=== PATIENT | female | born 1950 | race Asian ===

== ENCOUNTER 2025-07-02 06:23 | Day surgery (SDC) | payer BC ==
[2025-07-01 15:20] VITALS: BMI 18.8
[2025-07-02] MEDS ORDERED: fentaNYL PF 100 MCG/2 ML SYRINGE ONE (06:52)
[2025-07-02] MEDS ORDERED: PROPOFOL 20 ML ONE (06:52)
[2025-07-02] MEDS ORDERED: Rocuronium Bromide 10 MG/ML (10ML VIAL) ONE (06:52)
[2025-07-02] MEDS ORDERED: Lidocaine 1% PF 5 ML VIAL ONE (06:52)
[2025-07-02] MEDS ORDERED: CEFAZOLIN 2 GM VIAL ONE (07:13)
[2025-07-02] MEDS ORDERED: PHENYLEPHRINE-NS 100 MCG/ML 10 ML SYRINGE ONE (07:57)
== END 2025-07-02 09:00 | disposition home or self-care (01) ==
LOC: SDC 06:23
PROVIDERS: ATTEND Student in an Organized Health Care Education/Training Program
PROC: 0WPB00Z Removal of Drainage Device from Left Pleural Cavity, Open Approach (ICD-10-PCS; principal; 2025-07-02)
DX: J91.0 Malignant pleural effusion (principal)
CPT/HCPCS: J0169; J0665; J2704

== ENCOUNTER 2025-07-18 13:21 | Outpatient (CLI) | payer BC | END 2025-07-18 13:22 | disposition home or self-care (01) | LOC: RAD 13:21 | PROVIDERS: ATTEND Student in an Organized Health Care Education/Training Program | DX: J91.0 Malignant pleural effusion (principal) | CPT/HCPCS: 71046 ==

== ENCOUNTER 2025-08-07 03:44 | Inpatient (IN) | payer BC, MEDICARE ==
[2025-08-07] MEDS ORDERED: Ondansetron PF 4 MG/2 ML Vial IVP PRN (08:16)
[2025-08-07] MEDS ORDERED: Electrolyte Replacement Protocol 1 EACH FS SCH (08:30)
[2025-08-07 08:53] VITALS: BMI 19.3
[2025-08-07] MEDS ORDERED: Norepinephrine 8 MG/0.9% NS 250 ML IVPB SCH (09:00)
[2025-08-07] MEDS: Famotidine/PF 20 mg/2ml Vial SLOW IVP SCH (09:23)
[2025-08-07] MEDS ORDERED: PHOS-NAK 1 PKT PACK PO PRN (09:30)
[2025-08-07] MEDS ORDERED: Potassium Chloride 20 MEQ in Premix 1 BAG IVPB PRN (09:30)
[2025-08-07] MEDS: Enoxaparin 40 MG (0.4 mL) SYRINGE SC SCH (10:26)
[2025-08-07] MEDS: Famotidine 20 MG TAB PO SCH (10:27)
[2025-08-07] MEDS: Gabapentin 300 MG CAP PO SCH (10:28)
[2025-08-07] MEDS: Magnesium 2 GM/50 ML(in water) 2 GM in Premix 1 BAG IVPB PRN (10:35)
[2025-08-07 12:08] VITALS: BMI 19.3
[2025-08-07] MEDS: Albumin 25% 25 GM (100 mL) BOT IVPB SCH (15:59)
[2025-08-07] MEDS: Mupirocin 1 GM TUBE NASAL DECOLONIZATION NASAL SCH (20:13)
[2025-08-08] MEDS: Albumin 25% 25 GM (100 mL) BOT IVPB SCH (06:39)
[2025-08-08 07:11] LABS: #Basophils Less than 0.03 10x3/uL (0.0-0.2); #Eosinophils Less than 0.03 10x3/uL (0.0-0.7); #Monocytes 0.46 10x3/uL (0.11-0.59); #Neutrophils 4.75 10x3/uL (1.40-6.50); %Basophils 0.0 % (0.0-1.0); %Eosinophils 0.0 % (0.0-10.0); %Lymphocytes 5.9 % (21.0-51.0); %Monocytes 8.2 % (0.0-10.0); %Neutrophils 85.2 % (42.0-75.0); Hematocrit 24.0 % (36.0-47.0); Hemoglobin 7.4 g/dL (12.0-16.0); Mean Corpuscular Hemoglobin 30.6 pg (27.0-31.0); Mean Corpuscular Volume 99.2 fL (78.0-98.0); Platelet Count 343 10x3/uL (130-400); Red Blood Cell (RBC) Count 2.42 mill/uL (4.20-5.40); White Blood Cell (WBC) Count 5.58 10x3/uL (4.8-10.8)
[2025-08-08 07:39] LABS: Vancomycin, Random 14.8 ug/mL (See Comment)
[2025-08-08 07:44] LABS: ALT (SGPT) 17 U/L (Less than 34); AST (SGOT) 25 U/L (11-34); Albumin 2.5 g/dL (3.1-4.5); Alkaline Phosphatase 61 U/L (40-110); Anion Gap 13 mmol/L (10-20); BUN (Urea Nitrogen) 20 mg/dL (9.8-20.1); Bilirubin, Total 0.3 mg/dL (0.3-1.2); Calc. Creatinine Clearance 90 mL/min (70-130); Calcium 9.0 mg/dL (7.8-10.44); Carbon Dioxide 27 mmol/L (23-31); Chloride 102 mmol/L (98-107); Globulin 3.1 g/dL (2.4-3.5); Glucose 122 mg/dL (83-110); Magnesium 1.7 mg/dL (1.6-2.6); Potassium 3.8 mmol/L (3.5-5.1); Sodium 138 mmol/L (136-145)
[2025-08-08] MEDS: Vancomycin 1 GM Premix Bag IVPB SCH (13:19)
[2025-08-08] MEDS: Vancomycin 1 GM in Premix 1 BAG IVPB SCH (23:11)
[2025-08-09] MEDS: oxyCODONE 5 MG TAB PO PRN (04:05)
[2025-08-09 06:11] LABS: #Basophils Less than 0.03 10x3/uL (0.0-0.2); #Eosinophils Less than 0.03 10x3/uL (0.0-0.7); #Monocytes 0.80 10x3/uL (0.11-0.59); #Neutrophils 4.38 10x3/uL (1.40-6.50); %Basophils 0.0 % (0.0-1.0); %Eosinophils 0.4 % (0.0-10.0); %Lymphocytes 7.9 % (21.0-51.0); %Monocytes 14.1 % (0.0-10.0); %Neutrophils 76.9 % (42.0-75.0); Hematocrit 21.5 % (36.0-47.0); Hemoglobin 6.6 g/dL (12.0-16.0); Mean Corpuscular Hemoglobin 30.7 pg (27.0-31.0); Mean Corpuscular Volume 100.0 fL (78.0-98.0); Platelet Count 329 10x3/uL (130-400); Red Blood Cell (RBC) Count 2.15 mill/uL (4.20-5.40); White Blood Cell (WBC) Count 5.69 10x3/uL (4.8-10.8)
[2025-08-09 06:21] LABS: Anion Gap 10 mmol/L (10-20); BUN (Urea Nitrogen) 21 mg/dL (9.8-20.1); Calc. Creatinine Clearance 96 mL/min (70-130); Calcium 8.7 mg/dL (7.8-10.44); Carbon Dioxide 28 mmol/L (23-31); Chloride 106 mmol/L (98-107); Glucose 110 mg/dL (83-110); Magnesium 1.8 mg/dL (1.6-2.6); Potassium 3.4 mmol/L (3.5-5.1); Sodium 141 mmol/L (136-145)
[2025-08-09 17:03] LABS: Potassium 4.2 mmol/L (3.5-5.1)
[2025-08-09] MEDS: Acetaminophen 325 MG TAB PO PRN (20:20)
[2025-08-10 06:40] LABS: #Basophils Less than 0.03 10x3/uL (0.0-0.2); #Eosinophils 0.05 10x3/uL (0.0-0.7); #Monocytes 1.05 10x3/uL (0.11-0.59); #Neutrophils 4.48 10x3/uL (1.40-6.50); %Basophils 0.2 % (0.0-1.0); %Eosinophils 0.8 % (0.0-10.0); %Lymphocytes 10.7 % (21.0-51.0); %Monocytes 16.5 % (0.0-10.0); %Neutrophils 70.2 % (42.0-75.0); Hematocrit 26.4 % (36.0-47.0); Hemoglobin 8.2 g/dL (12.0-16.0); Mean Corpuscular Hemoglobin 30.4 pg (27.0-31.0); Mean Corpuscular Volume 97.8 fL (78.0-98.0); Platelet Count 308 10x3/uL (130-400); Red Blood Cell (RBC) Count 2.70 mill/uL (4.20-5.40); White Blood Cell (WBC) Count 6.37 10x3/uL (4.8-10.8)
[2025-08-10 06:57] LABS: Anion Gap 12 mmol/L (10-20); BUN (Urea Nitrogen) 16 mg/dL (9.8-20.1); Calc. Creatinine Clearance 101 mL/min (70-130); Calcium 8.5 mg/dL (7.8-10.44); Carbon Dioxide 26 mmol/L (23-31); Chloride 107 mmol/L (98-107); Glucose 71 mg/dL (83-110); Magnesium 1.6 mg/dL (1.6-2.6); Potassium 3.8 mmol/L (3.5-5.1); Sodium 141 mmol/L (136-145)
[2025-08-10] MEDS: predniSONE 20 MG TAB PO SCH (08:36)
[2025-08-10] MEDS: Cefdinir 300 MG CAP PO SCH (20:31)
[2025-08-10] MEDS: Senokot S 8.6-50 MG TAB PO SCH (20:32)
[2025-08-11] MEDS: Pantoprazole 40 MG DR.TAB PO SCH (08:04)
[2025-08-11 10:09] LABS: #Basophils 0.05 10x3/uL (0.0-0.2); #Eosinophils 0.04 10x3/uL (0.0-0.7); #Monocytes 1.48 10x3/uL (0.11-0.59); #Neutrophils 5.67 10x3/uL (1.40-6.50); %Basophils 0.6 % (0.0-1.0); %Eosinophils 0.5 % (0.0-10.0); %Lymphocytes 9.5 % (21.0-51.0); %Monocytes 18.0 % (0.0-10.0); %Neutrophils 69.2 % (42.0-75.0); Hematocrit 31.4 % (36.0-47.0); Hemoglobin 9.8 g/dL (12.0-16.0); Mean Corpuscular Hemoglobin 30.9 pg (27.0-31.0); Mean Corpuscular Volume 99.1 fL (78.0-98.0); Platelet Count 368 10x3/uL (130-400); Red Blood Cell (RBC) Count 3.17 mill/uL (4.20-5.40); White Blood Cell (WBC) Count 8.20 10x3/uL (4.8-10.8)
[2025-08-11 10:17] LABS: Anion Gap 13 mmol/L (10-20); BUN (Urea Nitrogen) 13 mg/dL (9.8-20.1); Calc. Creatinine Clearance 94 mL/min (70-130); Calcium 8.9 mg/dL (7.8-10.44); Carbon Dioxide 29 mmol/L (23-31); Chloride 102 mmol/L (98-107); Glucose 66 mg/dL (83-110); Magnesium 1.7 mg/dL (1.6-2.6); Potassium 3.5 mmol/L (3.5-5.1); Sodium 140 mmol/L (136-145)
[2025-08-12 08:02] LABS: #Basophils 0.04 10x3/uL (0.0-0.2); #Eosinophils 0.04 10x3/uL (0.0-0.7); #Monocytes 1.39 10x3/uL (0.11-0.59); #Neutrophils 6.29 10x3/uL (1.40-6.50); %Basophils 0.5 % (0.0-1.0); %Eosinophils 0.5 % (0.0-10.0); %Lymphocytes 8.9 % (21.0-51.0); %Monocytes 15.7 % (0.0-10.0); %Neutrophils 70.9 % (42.0-75.0); Hematocrit 27.6 % (36.0-47.0); Hemoglobin 8.4 g/dL (12.0-16.0); Mean Corpuscular Hemoglobin 30.0 pg (27.0-31.0); Mean Corpuscular Volume 98.6 fL (78.0-98.0); Platelet Count 308 10x3/uL (130-400); Red Blood Cell (RBC) Count 2.80 mill/uL (4.20-5.40); White Blood Cell (WBC) Count 8.86 10x3/uL (4.8-10.8)
[2025-08-12 08:20] LABS: Anion Gap 11 mmol/L (10-20); BUN (Urea Nitrogen) 13 mg/dL (9.8-20.1); Calc. Creatinine Clearance 101 mL/min (70-130); Calcium 8.3 mg/dL (7.8-10.44); Carbon Dioxide 31 mmol/L (23-31); Chloride 100 mmol/L (98-107); Glucose 75 mg/dL (83-110); Magnesium 1.6 mg/dL (1.6-2.6); Potassium 3.4 mmol/L (3.5-5.1); Sodium 139 mmol/L (136-145)
[2025-08-12 13:15] LABS: Potassium 4.1 mmol/L (3.5-5.1)
[2025-08-12] MEDS: Ketorolac Tromethamine 30 MG (1 mL) VIAL IVP SCH (20:59)
[2025-08-13 05:49] LABS: #Basophils 0.05 10x3/uL (0.0-0.2); #Eosinophils 0.05 10x3/uL (0.0-0.7); #Monocytes 1.20 10x3/uL (0.11-0.59); #Neutrophils 5.84 10x3/uL (1.40-6.50); %Basophils 0.6 % (0.0-1.0); %Eosinophils 0.6 % (0.0-10.0); %Lymphocytes 9.7 % (21.0-51.0); %Monocytes 14.6 % (0.0-10.0); %Neutrophils 71.0 % (42.0-75.0); Hematocrit 28.5 % (36.0-47.0); Hemoglobin 8.9 g/dL (12.0-16.0); Mean Corpuscular Hemoglobin 30.6 pg (27.0-31.0); Mean Corpuscular Volume 97.9 fL (78.0-98.0); Platelet Count 314 10x3/uL (130-400); Red Blood Cell (RBC) Count 2.91 mill/uL (4.20-5.40); White Blood Cell (WBC) Count 8.23 10x3/uL (4.8-10.8)
[2025-08-13 06:18] LABS: Anion Gap 11 mmol/L (10-20); BUN (Urea Nitrogen) 14 mg/dL (9.8-20.1); Calc. Creatinine Clearance 98 mL/min (70-130); Calcium 8.5 mg/dL (7.8-10.44); Carbon Dioxide 33 mmol/L (23-31); Chloride 99 mmol/L (98-107); Glucose 74 mg/dL (83-110); Magnesium 1.7 mg/dL (1.6-2.6); Potassium 4.0 mmol/L (3.5-5.1); Sodium 139 mmol/L (136-145)
[2025-08-13 07:57] VITALS: BP 118/70; TEMP 98.4
[2025-08-13] MEDS: Ketorolac Tromethamine 30 MG (1 mL) VIAL IVP SCH (09:54)
[2025-08-14] MEDS ORDERED: FLU (Fluad Triv) 25-26 (65UP)PF 45 MCG/0.5 ML Syringe IM ONE (14:45)
== END 2025-08-13 13:37 | disposition home or self-care (01) | DRG 871 ==
LOC: CCU 07:33 → T4-A 08-08 15:24
PROVIDERS: ADMIT Internal Medicine; ATTEND Internal Medicine
PROC: 30233N1 Transfusion of Nonautologous Red Blood Cells into Peripheral Vein, Percutaneous Approach (ICD-10-PCS; principal; 2025-08-07)
PROC: 30233J1 Transfusion of Nonautologous Serum Albumin into Peripheral Vein, Percutaneous Approach (ICD-10-PCS; 2025-08-07)
PROC: 3E03329 Introduction of Other Anti-infective into Peripheral Vein, Percutaneous Approach (ICD-10-PCS; 2025-08-10)
DX: A41.9 Sepsis, unspecified organism (principal); E43 Unspecified severe protein-calorie malnutrition; J96.21 Acute and chronic respiratory failure with hypoxia; R65.21 Severe sepsis with septic shock; J18.9 Pneumonia, unspecified organism; Z66 Do not resuscitate; Z51.5 Encounter for palliative care; E87.20 Acidosis, unspecified; C34.90 Malignant neoplasm of unspecified part of unspecified bronchus or lung; J91.0 Malignant pleural effusion; J44.0 Chronic obstructive pulmonary disease with (acute) lower respiratory infection; E78.5 Hyperlipidemia, unspecified; Z90.6 Acquired absence of other parts of urinary tract; G89.29 Other chronic pain; Z68.20 Body mass index [BMI] 20.0-20.9, adult; E83.42 Hypomagnesemia
CPT/HCPCS: 36415; 36430; 80048; 80053; 80202; 83735; 85025; 86850; 86900; 86901; 93306; J0692; J1650; J1885; J2919; J3373; J3475; J7030; J7050; J7512; P9016; P9047

== ENCOUNTER 2025-08-28 08:36 | Inpatient (IN) | payer BC, MEDICARE ==
[2025-08-28 09:31] LABS: #Basophils 0.05 10x3/uL (0.0-0.2); #Eosinophils 0.06 10x3/uL (0.0-0.7); #Monocytes 0.63 10x3/uL (0.11-0.59); #Neutrophils 8.35 10x3/uL (1.40-6.50); %Basophils 0.5 % (0.0-1.0); %Eosinophils 0.6 % (0.0-10.0); %Lymphocytes 5.4 % (21.0-51.0); %Monocytes 6.5 % (0.0-10.0); %Neutrophils 86.4 % (42.0-75.0); Hematocrit 32.9 % (36.0-47.0); Hemoglobin 10.2 g/dL (12.0-16.0); Mean Corpuscular Hemoglobin 29.4 pg (27.0-31.0); Mean Corpuscular Volume 94.8 fL (78.0-98.0); Platelet Count 231 10x3/uL (130-400); Red Blood Cell (RBC) Count 3.47 mill/uL (4.20-5.40); White Blood Cell (WBC) Count 9.67 10x3/uL (4.8-10.8)
[2025-08-28 09:47] LABS: ALT (SGPT) 20 U/L (Less than 34); AST (SGOT) 33 U/L (11-34); Albumin 2.4 g/dL (3.1-4.5); Alkaline Phosphatase 89 U/L (40-110); Anion Gap 15 mmol/L (10-20); BUN (Urea Nitrogen) 18 mg/dL (9.8-20.1); Bilirubin, Total 0.8 mg/dL (0.3-1.2); Calc. Creatinine Clearance 0 mL/min (70-130); Calcium 9.2 mg/dL (7.8-10.44); Carbon Dioxide 31 mmol/L (23-31); Chloride 98 mmol/L (98-107); Globulin 3.7 g/dL (2.4-3.5); Glucose 90 mg/dL (83-110); Potassium 3.7 mmol/L (3.5-5.1); Sodium 140 mmol/L (136-145)
[2025-08-28] MEDS ORDERED: Iopamidol-370 76% 500 ML MDV (1 ML CHARGE) ONE (09:54)
[2025-08-28] MEDS ORDERED: Acetaminophen 325 MG TAB PO PRN (13:43)
[2025-08-28] MEDS ORDERED: Ondansetron PF 4 MG/2 ML Vial IVP PRN (13:43)
[2025-08-28] MEDS ORDERED: Methocarbamol 1 GM in Sodium Chloride 0.9% 100 ML IVPB PRN (14:03)
[2025-08-28] MEDS: Albumin 25% 25 GM (100 mL) BOT IVPB SCH ×2 (15:27→21:22)
[2025-08-28] MEDS: Furosemide 20 MG (2 mL) VIAL SLOW IVP SCH (15:27)
[2025-08-28] MEDS: oxyCODONE 5 MG TAB PO PRN (16:45)
[2025-08-28 17:08] VITALS: BMI 17.2
[2025-08-28] MEDS ORDERED: Famotidine 20 MG TAB PO SCH (21:00)
[2025-08-28] MEDS: Gabapentin 300 MG CAP PO SCH (21:23)
[2025-08-28] MEDS: Senokot S 8.6-50 MG TAB PO SCH (21:24)
[2025-08-28] MEDS: Transdermal Patch Removal TOP SCH (21:38)
[2025-08-29 05:37] LABS: #Basophils Less than 0.03 10x3/uL (0.0-0.2); #Eosinophils Less than 0.03 10x3/uL (0.0-0.7); #Monocytes 0.32 10x3/uL (0.11-0.59); #Neutrophils 7.07 10x3/uL (1.40-6.50); %Basophils 0.3 % (0.0-1.0); %Eosinophils 0.1 % (0.0-10.0); %Lymphocytes 4.7 % (21.0-51.0); %Monocytes 4.1 % (0.0-10.0); %Neutrophils 90.4 % (42.0-75.0); Hematocrit 26.2 % (36.0-47.0); Hemoglobin 8.4 g/dL (12.0-16.0); Mean Corpuscular Hemoglobin 30.2 pg (27.0-31.0); Mean Corpuscular Volume 94.2 fL (78.0-98.0); Platelet Count 201 10x3/uL (130-400); Red Blood Cell (RBC) Count 2.78 mill/uL (4.20-5.40); White Blood Cell (WBC) Count 7.82 10x3/uL (4.8-10.8)
[2025-08-29 05:53] LABS: Anion Gap 13 mmol/L (10-20); BUN (Urea Nitrogen) 20 mg/dL (9.8-20.1); Calc. Creatinine Clearance 83 mL/min (70-130); Calcium 9.1 mg/dL (7.8-10.44); Carbon Dioxide 32 mmol/L (23-31); Chloride 98 mmol/L (98-107); Glucose 81 mg/dL (83-110); Magnesium 1.2 mg/dL (1.6-2.6); Potassium 3.0 mmol/L (3.5-5.1); Sodium 140 mmol/L (136-145)
[2025-08-29] MEDS ORDERED: PNEUMOC 20-VAL CONJ-DIP CRM/PF 0.5 ML SYRINGE IM ONE (09:00)
[2025-08-29] MEDS: Pantoprazole 40 MG DR.TAB PO SCH (09:03)
[2025-08-29] MEDS: Folic Acid 1 MG TAB PO SCH (09:04)
[2025-08-29 10:26] VITALS: BMI 17.2
[2025-08-29] MEDS: Magnesium Sulfate In Water 4 GM in Premix 1 BAG IVPB SCH (10:58)
[2025-08-30 11:38] VITALS: TEMP 97.6
[2025-08-30 13:29] VITALS: BP 105/72
== END 2025-08-30 15:10 | disposition hospice, home (50) | DRG 180 ==
LOC: ERS 08:36 → T4-B 13:32 → OBSVTOIN 08-29 10:07
PROVIDERS: ADMIT Family Medicine; ATTEND Internal Medicine
PROC: 30233J1 Transfusion of Nonautologous Serum Albumin into Peripheral Vein, Percutaneous Approach (ICD-10-PCS; principal; 2025-08-28)
PROC: 3E03329 Introduction of Other Anti-infective into Peripheral Vein, Percutaneous Approach (ICD-10-PCS; 2025-08-29)
DX: C34.90 Malignant neoplasm of unspecified part of unspecified bronchus or lung (principal); E43 Unspecified severe protein-calorie malnutrition; J96.11 Chronic respiratory failure with hypoxia; Z68.1 Body mass index [BMI] 19.9 or less, adult; J91.0 Malignant pleural effusion; Z66 Do not resuscitate; Z51.5 Encounter for palliative care; E78.5 Hyperlipidemia, unspecified; Z79.899 Other long term (current) drug therapy; Z98.890 Other specified postprocedural states; R62.7 Adult failure to thrive
CPT/HCPCS: 36415; 71045; 71275; 74177; 80048; 80053; 83735; 83880; 84484; 85025; 93005; 96374; 96375; 96376; G0378; J1940; J2543; J3010; J3475; J7512; P9047; Q9967